=== PATIENT | male | born 2000 | race Caucasian/White ===

== ENCOUNTER 2021-12-27 11:55 | Observation (INO) | payer BC ==
--- NOTE | 2021-12-27 12:48 | XR ---
EXAMINATION TYPE: XR KUB DATE OF EXAM: 12/27/2021 12:39 PM INDICATION: Patient age:Male; 21 years old; Reason for study: pool ball stuck inside rectum; [facility]. COMPARISON: None. TECHNIQUE: One radiographic view of the abdomen was obtained. FINDINGS: There is a round foreign body that projects over the sacrum. The bowel gas pattern is nonspecific without dilated loops of small or large bowel. There is no evide nce for organomegaly or pneumoperitoneum. The osseous structures are intact. No abnormal calcificat ions are present. Fecal material and gas are demonstrated throughout the colon and rectum. IMPRESSION: Circular-shaped foreign body projects over the sacrum.
[2021-12-27] MEDS ORDERED: NALOXONE 0.4 MG/ML 1 ML VIAL IV PRN (14:03)
--- NOTE | 2021-12-27 14:06 | ED ---
Medical Decision Making - Medical Decision Making 1401: I attempted to remove the patient's rectal foreign body myself using a small vaginal speculum and Cristal forceps, but I was unsuccessful. Case was discussed with the on-call surgeon, Dr. Palencia, and he recommends/accepts hospital admission. He states that he will attempt laxatives in hope that the patient can expel his rectal foreign body himself, and if not, he states that he will take the patient to the operating room. Dr. Palencia to see the patient in the ED. He has no further recommendations at this time. Disposition Clinical Impression: Rectal foreign body Disposition: ADMITTED IP TO THIS [facility] Condition: Stable Is patient prescribed a controlled substance at d/c from ED?: No Referrals: Scott Cabrera DO [Primary Care Provider] - 1-2 days
[2021-12-27] MEDS ORDERED: SODIUM CHLORIDE 0.9% 1,000 ML IV SCH (14:15)
[2021-12-27] MEDS ORDERED: PEG 3350 (236 GM/BTL) + LYTES 4,000 ML BOTTLE PO ONE (15:00)
--- NOTE | 2021-12-27 15:19 | P.HPIM ---
History of Present Illness H&P Date: 12/27/21 Chief Complaint: I have a pool ball in my rectum 21 yo male presents to the ER stating he self inserted a poolball into his rectum Pt states this was done approx 3 hs ago Denies pain at present Review of Systems neg Past Medical History History of Any Multi-Drug Resistant Organisms: None Reported Past Surgical History: No Surgical Hx Reported Past Psychological History: No Psychological Hx Reported Smoking Status: Never smoker Past Alcohol Use History: Rare Past Drug Use History: None Reported Medications and Allergies Home Medications Medication Instructions Recorded Confirmed Type No Known Home Medications 12/27/21 12/27/21 History Allergies Allergy/AdvReac Type Severity Reaction Status Date / Time cat dander Allergy itchy eyes Verified 12/27/21 14:24 Physical Exam Vitals: Vital Signs Temp Pulse Resp BP Pulse Ox 12/27/21 11:56 98.8 F 81 16 118/66 98 Intake and Output 12/26/21 12/27/21 12/27/21 22:59 06:59 14:59 Other: Weight 54.431 kg - Constitutional General appearance: thin - EENT Eyes: EOMI ENT: NA/AT - Neck Neck: normal ROM - Respiratory Respiratory: bilateral: CTA - Cardiovascular Rhythm: regular - Gastrointestinal non tender, no palpable mass or hernia General gastrointestinal: no soft - Psychiatric Psychiatric: A&O x's 3, intact judgment & insight Results Results: labs pending Abdominal x-ray: report reviewed, image reviewed (smooth rounf FB in upper rectum by X ray) Assessment and Plan Assessment: 21 yo male w rectal FB, pt comfortable, no evidence peritonitis or acute abdomen ER Physician was able to feel fb, but unable to grasp object As GI medicine unavailable, will give 2L golytely to see if patient can pass object himself or failing that bring it distalward so it might be grasped (under anesthesia if neccesary)
[2021-12-27 15:35] LABS: HGB 14.3 gm/dL (13.0-17.5); MCH 30.1 pg (25.0-35.0); MCHC 32.4 g/dL (31.0-37.0); MCV 92.8 fL (80.0-100.0); Platelet Count 315 k/uL (150-450); RBC 4.75 m/uL (4.30-5.90); RDW 12.2 % (11.5-15.5); WBC 14.8 k/uL (3.8-10.6)
[2021-12-27 15:56] VITALS: BP 97/60; PULSE 74; RESP 18; TEMP 99.1
[2021-12-27 15:56] LABS: Potassium 4.3 mmol/L (3.5-5.1)
== END 2021-12-27 19:45 | disposition home or self-care (01) ==
LOC: EC 11:55 → 6NMEDSUR 14:03 → 4SSUR 14:37
PROVIDERS: ADMIT Surgery; ATTEND Surgery
DX: T18.5XXA Foreign body in anus and rectum, initial encounter (principal); X58.XXXA Exposure to other specified factors, initial encounter
CPT/HCPCS: 99285; 80051; 85027; 74018; G0378

== ENCOUNTER 2023-03-03 15:45 | Emergency (ER) | payer BC ==
[2023-03-03] MEDS ORDERED: PROPARACAINE 0.5% OPHTH DROPS 15 ML BTL LEFT EYE STA (16:22)
[2023-03-03] MEDS ORDERED: FLUORESCEIN STRIPS 1 MG STRIP LEFT EYE ONE ×3 (16:22→19:48)
[2023-03-03] MEDS ORDERED: DIPH,PERTUS(ACELL)TETVAC-LF 0.5 ML VIAL IM ONE (16:36)
[2023-03-03] MEDS ORDERED: CIPROFLOXACIN 0.3% OPHTH SOLN 5 ML BTL LEFT EYE STA (17:07)
--- NOTE | 2023-03-03 17:18 | ED ---
General Adult HPI - General Chief complaint: Eye Problems Stated complaint: Lt eye pain Time Seen by Provider: 03/03/23 16:21 Source: patient, RN notes reviewed Mode of arrival: ambulatory Limitations: no limitations - History of Present Illness Initial comments: 22-year-old male presents to the emergency department chief complaint of left eye pain. He states that 2 days ago he bent down and hit his eye on the corner of a cage in which his brother keeps his pets. He states that his eyes are bothering him since then. He does admit to some blurry vision in the left eye. He denies any tearing or discharge from the left eye. - Related Data Home Medications Medication Instructions Recorded Confirmed No Known Home Medications 12/27/21 12/27/21 Allergies Allergy/AdvReac Type Severity Reaction Status Date / Time cat dander Allergy itchy eyes Verified 03/03/23 16:10 Review of Systems ROS Statement: Those systems with pertinent positive or pertinent negative responses have been documented in the HPI. ROS Other: All systems not noted in ROS Statement are negative. Past Medical History Past Medical History: No Reported History History of Any Multi-Drug Resistant Organisms: None Reported Past Surgical History: No Surgical Hx Reported Past Psychological History: No Psychological Hx Reported Smoking Status: Never smoker Past Alcohol Use History: None Reported Past Drug Use History: None Reported General Exam Limitations: no limitations General appearance: alert, in no apparent distress Head exam: Present: atraumatic, normocephalic, normal inspection Eye exam: Present: PERRL, EOMI, conjunctival injection, other (Schwartz lamp examination shows corneal abrasion about 5mm) ENT exam: Present: normal exam, mucous membranes moist Respiratory exam: Present: normal lung sounds bilaterally. Absent: respiratory distress, wheezes, rales, rhonchi, stridor Cardiovascular Exam: Present: regular rate, normal rhythm, normal heart sounds. Absent: systolic murmur, diastolic murmur, rubs, gallop, clicks Neurological exam: Present: alert, oriented X3 Psychiatric exam: Present: normal affect, normal mood Skin exam: Present: warm, dry, intact, normal color. Absent: rash Course Vital Signs 03/03/23 03/03/23 03/03/23 16:06 19:11 20:35 Temperature 98.6 F 98.4 F Pulse Rate 65 61 70 Respiratory 15 18 18 Rate Blood Pressure 109/69 108/60 100/58 O2 Sat by Pulse 100 98 98 Oximetry Medical Decision Making - Medical Decision Making Was pt. sent in by a medical professional or institution ([facility], AD COPY WRITER, urgent care, hospital, or skilled nursing...) When possible be specific @ -No Did you speak to anyone other than the patient for history (EMS, parent, family, police, friend...)? What history was obtained from this source @ -No Did you review nursing and triage notes (agree or disagree)? Why? @ -I reviewed and agree with nursing and triage notes Were old charts reviewed (outside hosp., previous admission, EMS record, old EKG, old radiological studies, urgent care reports/EKG's, skilled nursing records)? Report findings @ -No old charts were reviewed Differential Diagnosis (chest pain, altered mental status, abdominal pain women, abdominal pain men, vaginal bleeding, weakness, fever, dyspnea, syncope, headache, dizziness, GI bleed, back pain, seizure, CVA, palpatations, mental health, musculoskeletal)? @ -Corneal abrasion, eye foreign body, corneal laceration, iritis, conjunctivitis, this list is not all-inclusive EKG interpreted by me (3pts min.). @ -None X-rays interpreted by me (1pt min.). @ -None done CT interpreted by me (1pt min.). @ -None done U/S interpreted by me (1pt. min.). @ -None done What testing was considered but not performed or refused? (CT, X-rays, U/S, labs)? Why? @ -None What meds were considered but not given or refused? Why? @ -None Did you discuss the management of the patient with other professionals (professionals i.e. [facility], AD COPY WRITER, lab, RT, psych nurse, social director, clerical assistant, teacher, data officer, trimming caser)? Give summary @ -Case discussed with Dr. Hook who evaluated the patient in the EC Was smoking cessation discussed for >3mins.? @ -No Was critical care preformed (if so, how long)? @ -No Were there social determinants of health that impacted care today? How? (Homelessness, low income, unemployed, alcoholism, drug addiction, transportation, low edu. Level, literacy, decrease access to med. care, senior living, rehab)? @ -No Was there de-escalation of care discussed even if they declined (Discuss DNR or withdrawal of care, Hospice)? DNR status @ -No What co-morbidities impacted this encounter? (DM, HTN, Smoking, COPD, CAD, Cancer, CVA, ARF, Chemo, Hep., AIDS, mental health diagnosis, sleep apnea, morbid obesity)? @ -None Was patient admitted / discharged? Hospital course, mention meds given and route, prescriptions, significant lab abnormalities, going to OR and other pertinent info. @ -Charged. Patient presented to the emergency department with chief complaint of left eye injury. Patient was evaluated with the schwartz lamp. There is visible corneal abrasion with possible laceration. This is discussed with Dr. Hook who came in the evaluate the patient. Patient evaluated by ophthalmology who agrees with assessment of corneal abrasion. patient will be started on ciprofloxicin drops and follow up with ophthalmology on an outpatient basis tomorrow or tuesday. Case discussed with Dr. Zamorano, [facility] Undiagnosed new problem with uncertain prognosis? @ -No Drug Therapy requiring intensive monitoring for toxicity (Heparin, Nitro, Insulin, Cardizem)? @ -No Were any procedures done? @ -No Diagnosis/symptom? @ -corneal abrasion Acute, or Chronic, or Acute on Chronic? @ -acute Uncomplicated (without systemic symptoms) or Complicated (systemic symptoms)? @ -uncomplicated Side effects of treatment? @ -No Exacerbation, Progression, or Severe Exacerbation? @ -No Poses a threat to life or bodily function? How? (Chest pain, [place], [place], pneumonia, PE, COPD, DKA, ARF, appy, cholecystitis, CVA, Diverticulitis, Homicidal, Suicidal, threat to staff... and all critical care pts) @ -No Disposition Clinical Impression: Corneal abrasion Disposition: HOME SELF-CARE Condition: Stable Instructions (If sedation given, give patient instructions): Corneal Abrasion (ED) Additional Instructions: Please follow up with Dr. Hook. Return to the emergency department for new or worsening symptoms. Is patient prescribed a controlled substance at d/c from ED?: No Referrals: Scott Cabrera DO [Primary Care Provider] - 1-2 days Feng Hook MD [STAFF PHYSICIAN] - 1-2 days
[2023-03-03 19:27] VITALS: RESP 18
[2023-03-03] MEDS: TROPICAMIDE 1% OPHTH DROPS 2 ML BTL LEFT EYE SCH ×2 (19:54→20:12)
[2023-03-03 20:46] VITALS: BP 100/58; PULSE 70; TEMP 98.4
--- NOTE | 2023-03-03 22:04 | CONS ---
CONSULTATION CHIEF COMPLAINT: Pain in left eye for 2 days duration. HISTORY OF PRESENT ILLNESS: The patient injured his left eye in a metal cage accidentally. Complaining of photophobia, tearing, and blurry vision. PHYSICAL EXAMINATION: EYE EXAMINATION: The patient is very nearsighted, wearing high myopic correction. Extraocular motility full. Vision with reading card was 20/25 both eyes and pinhole. Left eye shows 2+ conjunctival injection. Left corneal abrasion measuring 4 mm inferiorly. Pupils equal and reactive. Extraocular motility was normal. Anterior chamber was quiet. Retina showed no retinal tears or hemorrhages. ASSESSMENT: 1. Left corneal abrasion. 2. Left eye pain. PLAN: I started the patient on Ciloxan eye drops 4 times a day. I will reexamine tomorrow in the office to rule out any underlying infection. MMODL / IJN: [id number] /
== END 2023-03-03 20:39 | disposition home or self-care (01) ==
LOC: EC 15:45
DX: S05.02XA Injury of conjunctiva and corneal abrasion without foreign body, left eye, initial encounter (principal); Z91.09 Other allergy status, other than to drugs and biological substances; Z23 Encounter for immunization; W22.8XXA Striking against or struck by other objects, initial encounter
CPT/HCPCS: 90471; 90715; 99283